=== PATIENT | female | born 1970 | race Caucasian/White ===

== ENCOUNTER 2025-05-09 16:46 | Emergency (ER) | payer OTHER ==
[~2025-05-09] VITALS: Ht 154.9 cm; Wt 49.4 kg
[2025-05-09] MEDS ORDERED: MORPHINE SULFATE INJ 4 MG/ML DISP.SYRIN ONE (17:11)
[2025-05-09] MEDS ORDERED: ONDANSETRON HCL/PF 4 MG/2 ML VIAL ONE (17:11)
[2025-05-09 17:25] LABS: PLATELET COUNT (AUTO) 215 K/uL (150-450); RED BLOOD CELL COUNT(AUTO) 4.67 MIL/uL (4.0-5.2); RED CELL DISTRIBUTION WIDTH 13.6 % (11.5-15.0); WHITE BLOOD COUNT (AUTO) 8.4 K/uL (4.3-11.0)
[2025-05-09] MEDS: IV NS 0.9% 1,000 ML BAG IV ONE (17:30)
[2025-05-09] MEDS: ONDANSETRON HCL/PF 4 MG/2 ML VIAL IVP ONE (17:30)
[2025-05-09] MEDS: MORPHINE SULFATE INJ 2 MG/ML DISP.SYRIN IV ONE (17:30)
[2025-05-09 17:39] LABS: ASPARTATE AMINOTRANSFERASE 206 U/L (15-37); CALCIUM, SERUM 9.4 mg/dL (8.5-10.1); CREATININE 0.6 mg/dL (0.6-1.3); SODIUM SERUM 138 mmol/L (136-145); TOTAL PROTEIN, SERUM 7.3 g/dL (6.4-8.2); UREA NITROGEN, BLOOD 19 mg/dL (7-18)
[2025-05-09] MEDS ORDERED: IOHEXOL-300 100 ML VIAL IV ONE (18:23)
[2025-05-09 20:09] LABS: APPEARANCE,URINE CLEAR (CLEAR); BLOOD, URINE NEGATIVE Ery/uL (NEGATIVE); LEUKOCYTE ESTERASE ,URINE NEGATIVE (NEGATIVE); NITRITE, URINE NEGATIVE (NEGATIVE); UGLUCOSE NEGATIVE (NEGATIVE)
[2025-05-09 20:47] LABS: ADD URINE CULTURE YES; SQUAMOUS EPITHELIAL CELL,UR Few /HPF (None Seen)
[2025-05-09] MEDS ORDERED: ONDA4TAB5 PO (21:12)
[2025-05-09 21:33] VITALS: BP 115/59; TEMP 97.9; O2SAT 98
== END 2025-05-09 21:33 | disposition home or self-care (01) ==
LOC: ER 17:00
DX: R11.2 Nausea with vomiting, unspecified (principal); R10.13 Epigastric pain; R74.01 Elevation of levels of liver transaminase levels; I10 Essential (primary) hypertension; E11.9 Type 2 diabetes mellitus without complications; K57.30 Diverticulosis of large intestine without perforation or abscess without bleeding; Z90.49 Acquired absence of other specified parts of digestive tract
CPT/HCPCS: 99285; 74177; 96374; 96361; 96375; 93005; 85025; 80048; 87086; 83690; 80076; 81001; 36415; 84484; J2270; J2405; J7030; Q9967